=== PATIENT | male | born 1955 | race Caucasian/White ===

== ENCOUNTER 2017-12-11 19:02 | Inpatient (IN) ==
[2017-12-11] MEDS ORDERED: SODIUM CHLORIDE 0.9% 500 ML IV STA (19:28)
[2017-12-11] MEDS ORDERED: ONDANSETRON 4 MG/2 ML VIAL IV STA (19:28)
[2017-12-11] MEDS ORDERED: METOCLOPRAMIDE 10 MG/2 ML VIAL IV STA (19:36)
[2017-12-11 19:55] LABS: Basophils % 0.1 % (0.0-0.8); Eosinophils % 0.1 % (0.00-10.9); Hematocrit 39.3 VOL% (42.0-52.0); Hemoglobin 13.1 GM/DL (14.0-18.0); Immature Granulocytes % 0.3 %; Immature Granulocytes Absolute 0.04 #; Lymphocytes # 0.8 10*3/uL (1.4-4.0); Lymphocytes % 5.5 % (21.2-54.2); Mean Corpuscular HGB Conc 33.3 GM/DL (32-36); Mean Corpuscular Hemoglobin 31 PG (27-34); Mean Corpuscular Volume 92.3 FL (87-102); Mean Platelet Volume 11.1 FL (9.6-12.0); Monocytes # 0.7 10*3/uL (0.11-0.8); Monocytes % 4.8 % (1.7-12.7); Neutrophils # 13.4 10*3/uL (1.4-7.4); Neutrophils % 89.2 % (38.7-73.9); Platelet Count 284 T/CUMM (130-400); Red Blood Count 4.26 MC/CUMM (3.8-5.5); Red Cell Distribution Width 14.2 % (9.3-17.3)
[2017-12-11] MEDS ORDERED: ONDANSETRON 4 MG/2 ML VIAL ONE (19:59)
[2017-12-11] MEDS ORDERED: METOCLOPRAMIDE 10 MG/2 ML VIAL ONE (19:59)
[2017-12-11 20:02] LABS: Apearance,Urine CLEAR (Clear); Bilirubin,Urine Negative (Negative); Blood, Urine Negative (Negative); Glucose,Urine (UA) Negative (Negative); Hyaline Casts,Urine 3 /LPF (0-3); Ketones,Urine Negative (Negative); Mucus,Urine Few /LPF (Occasional); Nitrite,Urine Positive (Negative); Protein,Urine 30 MG/DL; RBC,Urine 1 /HPF (0-4); Squamous Epithelial Cell,Urine Occasional /HPF (0-10); Urine Color Amber (Yellow); Urine Specific Gravity 1.029 (1.001-1.035); Urine Urobilinogen < 2.0 EU/DL (0.2-1.0); WBC,Urine 8 /HPF (0-6)
[2017-12-11] MEDS ORDERED: metroNIDAZOLE INJ 500 MG in PREMIX 1 EACH IV STA (20:18)
[2017-12-11] MEDS ORDERED: cefTRIAXone 2,000 MG in SODIUM CHLORIDE 0.9% 100 ML IV ONE (20:18)
[2017-12-11 20:19] LABS: Alanine Aminotransferase 10 U/L (16-61); Albumin 3.2 G/DL (3.4-5.0); Alkaline Phosphatase 74 U/L (45-117); Amylase 56 U/L (25-115); Aspartate Amino Transferase 12 U/L (0-37); Blood Urea Nitrogen 17 MG/DL (7-18); Calcium 8.9 MG/DL (8.5-10.1); Glucose 100 MG/DL (74-106); Lactic Acid 1.9 MMOL/L (0.4-2.0); Osmolality,Calculated 278.5 MOS/KG (273-304); Potassium 2.9 MMOL/L (3.5-5.1); Sodium 139 MMOL/L (136-145); Total Protein 7.4 G/DL (6.4-8.3); Troponin I < 0.015 NG/ML (0.00-0.045)
[2017-12-11] MEDS ORDERED: cefTRIAXone 1,000 MG VIAL ONE (20:20)
[2017-12-11] MEDS ORDERED: SODIUM CHLORIDE 0.9% 100 ML IV ONE ×2 (20:21→22:19)
[2017-12-11 20:34] LABS: INR 1.1; PT Patient Result 11.7 SECS; Partial Thromboplastin Time 29.5 SECS (0-40)
[2017-12-11] MEDS ORDERED: SODIUM CHLORIDE 0.9% 1,000 ML IV STA (21:00)
[2017-12-11] MEDS ORDERED: POTASSIUM CHLORIDE RIDER 100 ML IV ONE (21:42)
[2017-12-11] MEDS ORDERED: POTASSIUM CHLORIDE RIDER 10 MEQ in PREMIX 1 EACH IV ONE (22:01)
[2017-12-11] MEDS ORDERED: ALBUTEROL/IPRATROPIUM 3 ML NEB RESP TX STA (22:14)
[2017-12-11] MEDS ORDERED: PROPOFOL 1,000 MG/100 ML BOTTLE IV SCH (23:45)
[2017-12-12 00:07] LABS: Apearance,Urine CLEAR (Clear); Bilirubin,Urine Negative (Negative); Blood, Urine Negative (Negative); Glucose,Urine (UA) Negative (Negative); Hyaline Casts,Urine 18 /LPF (0-3); Ketones,Urine Negative (Negative); Mucus,Urine Occasional /LPF (Occasional); Nitrite,Urine Positive (Negative); Protein,Urine Negative; RBC,Urine 1 /HPF (0-4); Renal Epithelial Cells,Urine Occasional /HPF (<1); Urine Color Yellow (Yellow); Urine Specific Gravity 1.023 (1.001-1.035); Urine Urobilinogen < 2.0 EU/DL (0.2-1.0); WBC,Urine 1 /HPF (0-6)
[2017-12-12] MEDS ORDERED: ONDANSETRON 4 MG/2 ML VIAL IV PRN (00:46)
[2017-12-12] MEDS ORDERED: PROMETHAZINE 25 MG/1 ML VIAL IM PRN (00:46)
[2017-12-12] MEDS ORDERED: PROPOFOL 200 MG/20 ML VIAL IV ONE (00:54)
[2017-12-12] MEDS ORDERED: DEXAMETHASONE 10 MG/1 ML VIAL ONE (00:55)
[2017-12-12] MEDS ORDERED: MIDAZOLAM 2 MG/2 ML VIAL ONE (00:55)
[2017-12-12] MEDS ORDERED: DESFLURANE 1 UNIT/15 MINUTE INH ONE (00:55)
[2017-12-12] MEDS ORDERED: KETOROLAC 30 MG/1 ML VIAL ONE (00:56)
[2017-12-12] MEDS ORDERED: ONDANSETRON 4 MG/2 ML VIAL ONE (00:56)
[2017-12-12] MEDS ORDERED: PHENYLEPHRINE 0.5% NASAL SPRAY 15 ML BOTTLE BOTH NARES ONE (00:56)
[2017-12-12] MEDS ORDERED: ACETAMINOPHEN 1,000 MG/100 ML VIAL IV ONE (00:56)
[2017-12-12] MEDS ORDERED: PHENYLEPHRINE 1 MG/10 ML SYRINGE IV ONE (00:56)
[2017-12-12] MEDS ORDERED: ROCURONIUM 100 MG/10 ML VIAL IV ONE (00:56)
[2017-12-12] MEDS ORDERED: LACTATED RINGERS 2,000 ML IV ONE (00:56)
[2017-12-12] MEDS ORDERED: SUCCINYLCHOLINE 200 MG/10 ML VIAL ONE (00:57)
[2017-12-12] MEDS ORDERED: LACTATED RINGERS 1,000 ML IV SCH (01:00)
[2017-12-12] MEDS: PROPOFOL 1,000 MG/100 ML BOTTLE IV SCH (01:10)
[2017-12-12] MEDS: KETOROLAC 15 MG/1 ML VIAL IV SCH ×4 (01:18→18:13)
[2017-12-12 01:29] LABS: ABG Base Excess -1.7 MMOL/L (-2.5-2.5); ABG Oxygen Saturation 96.9 % (95-100); ABG PCO2 48.1 MM HG (35-48); ABG PH 7.322 (7.35-7.45); ABG TCO2 22.1 MMOL/L (23-27); Allen Test Positive; Pt O2 Delivery Device Ventilator
[2017-12-12] MEDS: HYDROmorphone 2 MG/1 ML VIAL IV PRN ×4 (01:36→23:32)
[2017-12-12 02:06] LABS: Calcium 7.7 MG/DL (8.5-10.1); Osmolality,Calculated 282.3 MOS/KG (273-304)
[2017-12-12 02:11] LABS: Basophils % 0.1 % (0.0-0.8); Eosinophils % 0.1 % (0.00-10.9); Hematocrit 36.8 VOL% (42.0-52.0); Hemoglobin 12.5 GM/DL (14.0-18.0); Immature Granulocytes % 0.3 %; Immature Granulocytes Absolute 0.05 #; Lymphocytes # 0.9 10*3/uL (1.4-4.0); Lymphocytes % 5.6 % (21.2-54.2); Mean Corpuscular Hemoglobin 31 PG (27-34); Mean Corpuscular Volume 92.2 FL (87-102); Mean Platelet Volume 11.4 FL (9.6-12.0); Monocytes # 0.6 10*3/uL (0.11-0.8); Monocytes % 3.7 % (1.7-12.7); Neutrophils # 13.7 10*3/uL (1.4-7.4); Neutrophils % 90.2 % (38.7-73.9); Platelet Count 263 T/CUMM (130-400); Red Blood Count 3.99 MC/CUMM (3.8-5.5); Red Cell Distribution Width 14.1 % (9.3-17.3); White Blood Count 15.2 T/CUMM (4-12)
[2017-12-12 03:32] LABS: Allen Test Positive; Pt O2 Delivery Device Ventilator
[2017-12-12 03:33] LABS: ABG Base Excess 0.7 MMOL/L (-2.5-2.5); ABG HCO3 25.5 MMOL/L (20-26); ABG Oxygen Saturation 97.4 % (95-100); ABG PCO2 41.9 MM HG (35-48); ABG PH 7.403 (7.35-7.45); ABG PO2 115.4 MM HG (80-95); ABG TCO2 26.8 MMOL/L (23-27)
[2017-12-12 05:25] LABS: Basophils % 0.2 % (0.0-0.8); Hematocrit 33.7 VOL% (42.0-52.0); Hemoglobin 11.7 GM/DL (14.0-18.0); Immature Granulocytes % 0.4 %; Immature Granulocytes Absolute 0.05 #; Lymphocytes # 0.5 10*3/uL (1.4-4.0); Lymphocytes % 4.1 % (21.2-54.2); Mean Corpuscular HGB Conc 34.7 GM/DL (32-36); Mean Corpuscular Hemoglobin 32 PG (27-34); Mean Corpuscular Volume 91.6 FL (87-102); Mean Platelet Volume 11.9 FL (9.6-12.0); Monocytes # 0.3 10*3/uL (0.11-0.8); Monocytes % 2.2 % (1.7-12.7); Neutrophils # 11.7 10*3/uL (1.4-7.4); Neutrophils % 93.1 % (38.7-73.9); Platelet Count 272 T/CUMM (130-400); Red Blood Count 3.68 MC/CUMM (3.8-5.5); White Blood Count 12.6 T/CUMM (4-12)
[2017-12-12 06:02] LABS: Band Neutrophils 19 % (0-10); Lymphocytes 4 % (20-55); Platelet Estimate Normal; Segmented Neutrophils 73 % (50-85); Total Cells Counted 100
[2017-12-12 06:03] LABS: Acanthocytes Few; Hypochromasia 3+
[2017-12-12] MEDS: POTASSIUM CHLORIDE RIDER 10 MEQ in PREMIX 1 EACH IV PRN ×2 (06:59→08:06)
[2017-12-12] MEDS: PANTOPRAZOLE 40 MG VIAL IV SCH (08:02)
[2017-12-12] MEDS: METOPROLOL SUCCINATE XL 25 MG TABLET PO SCH (08:03)
[2017-12-12] MEDS: ASPIRIN EC 325 MG TABLET PO SCH (08:03)
[2017-12-12] MEDS: amLODIPine 5 MG TABLET PO SCH (08:03)
[2017-12-12] MEDS: DEXT 5% NACL 0.45% KCL 40 MEQ 40 MEQ/1,000 ML BAG IV SCH ×2 (08:25→16:39)
[2017-12-12 09:19] LABS: Allen Test Positive
[2017-12-12 09:25] LABS: ABG Base Excess 0.9 MMOL/L (-2.5-2.5); ABG HCO3 25.2 MMOL/L (20-26); ABG Oxygen Saturation 98.2 % (95-100); ABG PCO2 40.5 MM HG (35-48); ABG PH 7.408 (7.35-7.45); ABG TCO2 22.6 MMOL/L (23-27)
[2017-12-12 10:09] LABS: Calcium 8.4 MG/DL (8.5-10.1); Osmolality,Calculated 280.4 MOS/KG (273-304); Potassium 4.1 MMOL/L (3.5-5.1)
[2017-12-12] MEDS: ALBUTEROL/IPRATROPIUM 3 ML NEB RESP TX SCH ×4 (11:01→23:26)
[2017-12-12] MEDS: ENOXAPARIN 40 MG/0.4 ML SYRINGE SUBCUT SCH (20:35)
[2017-12-12] MEDS: ATORVASTATIN 40 MG TABLET PO SCH (20:35)
[2017-12-13] MEDS: DEXT 5% NACL 0.45% KCL 40 MEQ 40 MEQ/1,000 ML BAG IV SCH ×3 (01:00→17:22)
[2017-12-13] MEDS: KETOROLAC 15 MG/1 ML VIAL IV SCH ×4 (02:56→18:22)
[2017-12-13] MEDS: ALBUTEROL/IPRATROPIUM 3 ML NEB RESP TX SCH ×6 (03:29→23:36)
[2017-12-13 03:50] LABS: ABG Base Excess 1.2 MMOL/L (-2.5-2.5); ABG HCO3 25.5 MMOL/L (20-26); ABG Oxygen Saturation 97.1 % (95-100); ABG PCO2 40.6 MM HG (35-48); ABG PH 7.412 (7.35-7.45); ABG TCO2 22.9 MMOL/L (23-27)
[2017-12-13 04:40] LABS: Basophils % 0.1 % (0.0-0.8); Eosinophils # 0.1 10*3/uL (0.0-0.87); Eosinophils % 0.4 % (0.00-10.9); Hematocrit 36.1 VOL% (42.0-52.0); Immature Granulocytes % 0.3 %; Immature Granulocytes Absolute 0.05 #; Lymphocytes # 1.4 10*3/uL (1.4-4.0); Lymphocytes % 8.9 % (21.2-54.2); Mean Corpuscular HGB Conc 33.2 GM/DL (32-36); Mean Corpuscular Hemoglobin 31 PG (27-34); Mean Corpuscular Volume 91.9 FL (87-102); Mean Platelet Volume 12.2 FL (9.6-12.0); Monocytes # 0.7 10*3/uL (0.11-0.8); Monocytes % 4.4 % (1.7-12.7); Neutrophils # 13.9 10*3/uL (1.4-7.4); Neutrophils % 85.9 % (38.7-73.9); Platelet Count 246 T/CUMM (130-400); Red Blood Count 3.93 MC/CUMM (3.8-5.5); Red Cell Distribution Width 14.2 % (9.3-17.3); White Blood Count 16.2 T/CUMM (4-12)
[2017-12-13] MEDS: HYDROmorphone 2 MG/1 ML VIAL IV PRN (05:43)
[2017-12-13] MEDS: PANTOPRAZOLE 40 MG VIAL IV SCH (09:04)
[2017-12-13] MEDS: ASPIRIN EC 325 MG TABLET PO SCH (09:05)
[2017-12-13] MEDS: METOPROLOL SUCCINATE XL 25 MG TABLET PO SCH (09:05)
[2017-12-13] MEDS: amLODIPine 5 MG TABLET PO SCH (09:05)
[2017-12-13] MEDS: LEVOFLOXACIN INJ 500 MG in PREMIX 1 EACH IV SCH (16:28)
[2017-12-13] MEDS: PROPOFOL 1,000 MG/100 ML BOTTLE IV SCH (17:23)
[2017-12-13] MEDS: ENOXAPARIN 40 MG/0.4 ML SYRINGE SUBCUT SCH (20:00)
[2017-12-13] MEDS: ATORVASTATIN 40 MG TABLET PO SCH (20:00)
[2017-12-14] MEDS: KETOROLAC 15 MG/1 ML VIAL IV SCH ×4 (00:55→19:35)
[2017-12-14] MEDS: DEXT 5% NACL 0.45% KCL 40 MEQ 40 MEQ/1,000 ML BAG IV SCH ×3 (02:30→19:25)
[2017-12-14] MEDS: ALBUTEROL/IPRATROPIUM 3 ML NEB RESP TX SCH ×6 (04:17→23:23)
[2017-12-14 04:27] LABS: ABG Base Excess 2.8 MMOL/L (-2.5-2.5); ABG HCO3 26.8 MMOL/L (20-26); ABG Oxygen Saturation 93.6 % (95-100); ABG PCO2 36.5 MM HG (35-48); ABG PH 7.466 (7.35-7.45); ABG PO2 67.8 MM HG (80-95); ABG TCO2 23.4 MMOL/L (23-27); Allen Test Positive; Pt O2 Delivery Device Room Air
[2017-12-14 05:06] LABS: Basophils % 0.3 % (0.0-0.8); Eosinophils # 0.4 10*3/uL (0.0-0.87); Eosinophils % 4.7 % (0.00-10.9); Hematocrit 34.9 VOL% (42.0-52.0); Hemoglobin 11.4 GM/DL (14.0-18.0); Immature Granulocytes % 0.4 %; Immature Granulocytes Absolute 0.04 #; Lymphocytes # 1.1 10*3/uL (1.4-4.0); Lymphocytes % 11.9 % (21.2-54.2); Mean Corpuscular HGB Conc 32.7 GM/DL (32-36); Mean Corpuscular Hemoglobin 30 PG (27-34); Mean Corpuscular Volume 92.8 FL (87-102); Mean Platelet Volume 12.2 FL (9.6-12.0); Monocytes # 0.6 10*3/uL (0.11-0.8); Monocytes % 6.3 % (1.7-12.7); Neutrophils # 7.2 10*3/uL (1.4-7.4); Neutrophils % 76.4 % (38.7-73.9); Platelet Count 230 T/CUMM (130-400); Red Blood Count 3.76 MC/CUMM (3.8-5.5); Red Cell Distribution Width 14.6 % (9.3-17.3); White Blood Count 9.4 T/CUMM (4-12)
[2017-12-14] MEDS: HYDROmorphone 2 MG/1 ML VIAL IV PRN ×4 (05:20→23:00)
[2017-12-14] MEDS: ASPIRIN EC 325 MG TABLET PO SCH (09:47)
[2017-12-14] MEDS: METOPROLOL SUCCINATE XL 25 MG TABLET PO SCH (09:47)
[2017-12-14] MEDS: amLODIPine 5 MG TABLET PO SCH (09:48)
[2017-12-14] MEDS: PANTOPRAZOLE 40 MG VIAL IV SCH (09:48)
[2017-12-14] MEDS ORDERED: SILVER NITRATE STICK 1 EACH TOP ONE ×2 (12:29→12:38)
[2017-12-14] MEDS: LEVOFLOXACIN INJ 500 MG in PREMIX 1 EACH IV SCH (16:09)
[2017-12-14] MEDS: ENOXAPARIN 40 MG/0.4 ML SYRINGE SUBCUT SCH (21:18)
[2017-12-14] MEDS: ATORVASTATIN 40 MG TABLET PO SCH (21:18)
[2017-12-15] MEDS: DEXT 5% NACL 0.45% KCL 40 MEQ 40 MEQ/1,000 ML BAG IV SCH ×3 (03:50→20:19)
[2017-12-15] MEDS: ALBUTEROL/IPRATROPIUM 3 ML NEB RESP TX SCH ×5 (04:22→18:48)
[2017-12-15 04:35] LABS: ABG Base Excess 4.5 MMOL/L (-2.5-2.5); ABG HCO3 28.3 MMOL/L (20-26); ABG Oxygen Saturation 91.5 % (95-100); ABG PCO2 38.8 MM HG (35-48); ABG PH 7.472 (7.35-7.45); ABG TCO2 25.2 MMOL/L (23-27); Allen Test Positive; Pt O2 Delivery Device Room Air
[2017-12-15] MEDS: HYDROmorphone 2 MG/1 ML VIAL IV PRN (06:34)
[2017-12-15 07:12] LABS: Basophils % 0.3 % (0.0-0.8); Eosinophils # 0.5 10*3/uL (0.0-0.87); Eosinophils % 5.8 % (0.00-10.9); Hematocrit 37.5 VOL% (42.0-52.0); Hemoglobin 12.1 GM/DL (14.0-18.0); Immature Granulocytes % 0.5 %; Immature Granulocytes Absolute 0.04 #; Lymphocytes # 1.2 10*3/uL (1.4-4.0); Lymphocytes % 13.4 % (21.2-54.2); Mean Corpuscular HGB Conc 32.3 GM/DL (32-36); Mean Corpuscular Hemoglobin 30 PG (27-34); Mean Corpuscular Volume 93.8 FL (87-102); Monocytes # 0.6 10*3/uL (0.11-0.8); Monocytes % 7.4 % (1.7-12.7); Neutrophils # 6.3 10*3/uL (1.4-7.4); Neutrophils % 72.6 % (38.7-73.9); Platelet Count 255 T/CUMM (130-400); Red Cell Distribution Width 14.2 % (9.3-17.3); White Blood Count 8.6 T/CUMM (4-12)
[2017-12-15] MEDS: PANTOPRAZOLE 40 MG VIAL IV SCH (08:04)
[2017-12-15] MEDS: METOPROLOL SUCCINATE XL 25 MG TABLET PO SCH (08:04)
[2017-12-15] MEDS: ASPIRIN EC 325 MG TABLET PO SCH (08:04)
[2017-12-15] MEDS: amLODIPine 5 MG TABLET PO SCH (08:04)
[2017-12-15] MEDS: MEROPENEM 500 MG in SODIUM CHLORIDE 0.9% 100 ML IV SCH ×2 (10:53→17:34)
[2017-12-15] MEDS: ATORVASTATIN 40 MG TABLET PO SCH (20:20)
[2017-12-15] MEDS: ENOXAPARIN 40 MG/0.4 ML SYRINGE SUBCUT SCH (20:22)
[2017-12-16] MEDS: ALBUTEROL/IPRATROPIUM 3 ML NEB RESP TX SCH ×7 (00:19→23:42)
[2017-12-16] MEDS: MEROPENEM 500 MG in SODIUM CHLORIDE 0.9% 100 ML IV SCH ×3 (01:40→18:11)
[2017-12-16 02:11] LABS: Apearance,Urine CLEAR (Clear); Bilirubin,Urine Negative (Negative); Blood, Urine Small mg/dL (Negative); Glucose,Urine (UA) Negative (Negative); Ketones,Urine Negative (Negative); Mucus,Urine Occasional /LPF (Occasional); Nitrite,Urine Negative (Negative); Protein,Urine Negative; RBC,Urine <1 /HPF (0-4); Squamous Epithelial Cell,Urine Occasional /HPF (0-10); Urine Color Yellow (Yellow); Urine Specific Gravity 1.008 (1.001-1.035); Urine Urobilinogen < 2.0 EU/DL (0.2-1.0); WBC,Urine 2 /HPF (0-6)
[2017-12-16 07:20] LABS: Basophils % 0.5 % (0.0-0.8); Eosinophils # 0.6 10*3/uL (0.0-0.87); Eosinophils % 6.6 % (0.00-10.9); Hematocrit 37.4 VOL% (42.0-52.0); Hemoglobin 12.6 GM/DL (14.0-18.0); Immature Granulocytes % 0.5 %; Immature Granulocytes Absolute 0.04 #; Lymphocytes # 1.3 10*3/uL (1.4-4.0); Lymphocytes % 15.2 % (21.2-54.2); Mean Corpuscular HGB Conc 33.7 GM/DL (32-36); Mean Corpuscular Hemoglobin 31 PG (27-34); Mean Corpuscular Volume 92.3 FL (87-102); Mean Platelet Volume 12.2 FL (9.6-12.0); Monocytes # 0.8 10*3/uL (0.11-0.8); Monocytes % 9.4 % (1.7-12.7); Neutrophils # 5.9 10*3/uL (1.4-7.4); Neutrophils % 67.8 % (38.7-73.9); Platelet Count 253 T/CUMM (130-400); Red Blood Count 4.05 MC/CUMM (3.8-5.5); Red Cell Distribution Width 13.8 % (9.3-17.3); White Blood Count 8.7 T/CUMM (4-12)
[2017-12-16 07:50] LABS: Calcium 8.5 MG/DL (8.5-10.1); Osmolality,Calculated 273.5 MOS/KG (273-304)
[2017-12-16] MEDS: amLODIPine 5 MG TABLET PO SCH (08:46)
[2017-12-16] MEDS: METOPROLOL SUCCINATE XL 25 MG TABLET PO SCH (08:46)
[2017-12-16] MEDS: PANTOPRAZOLE 40 MG TABLET PO SCH (08:46)
[2017-12-16] MEDS: ASPIRIN EC 325 MG TABLET PO SCH (08:46)
[2017-12-16] MEDS: DEXT 5% NACL 0.45% KCL 40 MEQ 40 MEQ/1,000 ML BAG IV SCH ×2 (10:02→23:15)
[2017-12-16] MEDS: HYDROmorphone 2 MG/1 ML VIAL IV PRN ×2 (10:10→22:05)
[2017-12-16] MEDS: MAGNESIUM CHLORIDE 64 MG TABLET PO SCH ×2 (11:50→22:04)
[2017-12-16] MEDS: ATORVASTATIN 40 MG TABLET PO SCH (22:04)
[2017-12-16] MEDS: ENOXAPARIN 40 MG/0.4 ML SYRINGE SUBCUT SCH (22:05)
[2017-12-17] MEDS: MEROPENEM 500 MG in SODIUM CHLORIDE 0.9% 100 ML IV SCH ×2 (03:47→10:41)
[2017-12-17] MEDS: ALBUTEROL/IPRATROPIUM 3 ML NEB RESP TX SCH ×4 (04:05→14:54)
[2017-12-17] MEDS: ASPIRIN EC 325 MG TABLET PO SCH (09:30)
[2017-12-17] MEDS: amLODIPine 5 MG TABLET PO SCH (09:31)
[2017-12-17] MEDS: MAGNESIUM CHLORIDE 64 MG TABLET PO SCH (09:31)
[2017-12-17] MEDS: METOPROLOL SUCCINATE XL 25 MG TABLET PO SCH (09:31)
[2017-12-17] MEDS: PANTOPRAZOLE 40 MG TABLET PO SCH (09:31)
[2017-12-17] MEDS: HYDROmorphone 2 MG/1 ML VIAL IV PRN ×2 (10:43→14:33)
[2017-12-17 16:29] VITALS: BP 143/75
== END 2017-12-17 16:25 | DRG 329 ==
LOC: N.ED 19:02 → N.ICU 22:24 → N.SDS 22:25 → N.SDSINP 22:29 → N.ICU 22:30 → N.3E 12-13 20:54
PROVIDERS: ADMIT Surgery; ATTEND Surgery

== ENCOUNTER 2017-12-22 08:28 | Inpatient (IN) ==
[2017-12-22 09:50] LABS: Basophils # 0.1 10*3/uL (0.0-0.2); Basophils % 0.3 % (0.0-0.8); Hematocrit 40.9 VOL% (42.0-52.0); Hemoglobin 13.9 GM/DL (14.0-18.0); Immature Granulocytes % 0.9 %; Immature Granulocytes Absolute 0.18 #; Lymphocytes # 1.3 10*3/uL (1.4-4.0); Lymphocytes % 6.2 % (21.2-54.2); Mean Corpuscular Hemoglobin 31 PG (27-34); Mean Corpuscular Volume 90.9 FL (87-102); Mean Platelet Volume 11.9 FL (9.6-12.0); Monocytes # 2.1 10*3/uL (0.11-0.8); Neutrophils # 17.4 10*3/uL (1.4-7.4); Neutrophils % 82.6 % (38.7-73.9); Platelet Count 554 T/CUMM (130-400); Red Cell Distribution Width 13.3 % (9.3-17.3)
[2017-12-22 10:09] LABS: Albumin 2.8 G/DL (3.4-5.0); Bilirubin,Total 0.5 MG/DL (0.2-1.0); Calcium 9.4 MG/DL (8.5-10.1); Osmolality,Calculated 265.7 MOS/KG (273-304)
[2017-12-22] MEDS ORDERED: ONDANSETRON 4 MG/2 ML VIAL IV STA (10:11)
[2017-12-22 10:14] LABS: Eosinophils 1 % (0-10); Lymphocytes 7 % (20-55); Microcytosis Slight; Platelet Estimate Increased; Segmented Neutrophils 80 % (50-85); Total Cells Counted 100
[2017-12-22] MEDS ORDERED: SODIUM CHLORIDE 0.9% 1,000 ML IV STA (11:18)
[2017-12-22] MEDS ORDERED: PROMETHAZINE 25 MG/1 ML VIAL IM PRN (13:12)
[2017-12-22] MEDS ORDERED: ACETAMINOPHEN 325 MG TABLET PO PRN (13:12)
[2017-12-22] MEDS: MORPHINE 4 MG/1 ML VIAL IV PRN ×2 (14:39→22:15)
[2017-12-22] MEDS: ONDANSETRON 4 MG/2 ML VIAL IV PRN (14:40)
[2017-12-22] MEDS: PIPERACILLIN/TAZOBACTAM 3,375 MG in SODIUM CHLORIDE 0.9% 100 ML IV SCH ×2 (14:41→22:05)
[2017-12-22] MEDS: LACTATED RINGERS 1,000 ML IV SCH (14:41)
[2017-12-22 18:49] LABS: Apearance,Urine Slightly Hazy (Clear); Bilirubin,Urine Negative (Negative); Blood, Urine Negative (Negative); Glucose,Urine (UA) 50 mg/dL (Negative); Hyaline Casts,Urine 105 /LPF (0-3); Ketones,Urine 5 mg/dL (Negative); Mucus,Urine Occasional /LPF (Occasional); Nitrite,Urine Negative (Negative); Protein,Urine Negative; RBC,Urine 2 /HPF (0-4); Squamous Epithelial Cell,Urine Occasional /HPF (0-10); Urine Color Amber (Yellow); WBC,Urine 1 /HPF (0-6)
[2017-12-23] MEDS: PIPERACILLIN/TAZOBACTAM 3,375 MG in SODIUM CHLORIDE 0.9% 100 ML IV SCH ×3 (05:44→21:22)
[2017-12-23] MEDS: ENOXAPARIN 40 MG/0.4 ML SYRINGE SUBCUT SCH (05:44)
[2017-12-23] MEDS: LACTATED RINGERS 1,000 ML IV SCH ×4 (06:57→20:05)
[2017-12-23 07:03] LABS: Basophils # 0.1 10*3/uL (0.0-0.2); Basophils % 0.4 % (0.0-0.8); Eosinophils # 0.1 10*3/uL (0.0-0.87); Eosinophils % 0.3 % (0.00-10.9); Hematocrit 35.1 VOL% (42.0-52.0); Immature Granulocytes % 0.5 %; Immature Granulocytes Absolute 0.09 #; Lymphocytes # 1.1 10*3/uL (1.4-4.0); Lymphocytes % 5.7 % (21.2-54.2); Mean Corpuscular HGB Conc 34.2 GM/DL (32-36); Mean Corpuscular Hemoglobin 31 PG (27-34); Mean Corpuscular Volume 90.7 FL (87-102); Mean Platelet Volume 10.7 FL (9.6-12.0); Monocytes # 1.2 10*3/uL (0.11-0.8); Monocytes % 6.2 % (1.7-12.7); Neutrophils % 86.9 % (38.7-73.9); Platelet Count 449 T/CUMM (130-400); Red Blood Count 3.87 MC/CUMM (3.8-5.5); Red Cell Distribution Width 13.3 % (9.3-17.3); White Blood Count 19.6 T/CUMM (4-12)
[2017-12-23 07:42] LABS: Calcium 8.1 MG/DL (8.5-10.1); Osmolality,Calculated 275.1 MOS/KG (273-304); Potassium 3.8 MMOL/L (3.5-5.1)
[2017-12-23] MEDS: ONDANSETRON 4 MG/2 ML VIAL IV PRN (08:02)
[2017-12-23] MEDS: MORPHINE 4 MG/1 ML VIAL IV PRN ×3 (08:02→23:53)
[2017-12-23] MEDS: PANTOPRAZOLE 40 MG TABLET PO SCH (08:02)
[2017-12-23] MEDS ORDERED: MAGNESIUM SULF RIDER 4 GM in PREMIX 1 EACH IV PRN (11:42)
[2017-12-23] MEDS: MAGNESIUM SULF RIDER 2 GM in PREMIX 1 EACH IV PRN (12:03)
[2017-12-24 05:43] LABS: Basophils # 0.1 10*3/uL (0.0-0.2); Basophils % 0.8 % (0.0-0.8); Eosinophils # 0.2 10*3/uL (0.0-0.87); Eosinophils % 1.6 % (0.00-10.9); Hematocrit 32.8 VOL% (42.0-52.0); Hemoglobin 10.9 GM/DL (14.0-18.0); Immature Granulocytes % 0.8 %; Lymphocytes # 1.4 10*3/uL (1.4-4.0); Lymphocytes % 10.6 % (21.2-54.2); Mean Corpuscular HGB Conc 33.2 GM/DL (32-36); Mean Corpuscular Hemoglobin 31 PG (27-34); Mean Corpuscular Volume 92.1 FL (87-102); Mean Platelet Volume 11.1 FL (9.6-12.0); Monocytes % 7.1 % (1.7-12.7); Neutrophils # 10.6 10*3/uL (1.4-7.4); Neutrophils % 79.1 % (38.7-73.9); Platelet Count 372 T/CUMM (130-400); Red Blood Count 3.56 MC/CUMM (3.8-5.5); Red Cell Distribution Width 13.1 % (9.3-17.3); White Blood Count 13.3 T/CUMM (4-12)
[2017-12-24] MEDS: PIPERACILLIN/TAZOBACTAM 3,375 MG in SODIUM CHLORIDE 0.9% 100 ML IV SCH ×2 (05:44→14:00)
[2017-12-24] MEDS: ENOXAPARIN 40 MG/0.4 ML SYRINGE SUBCUT SCH (05:45)
[2017-12-24 06:06] LABS: Calcium 8.6 MG/DL (8.5-10.1); Potassium 3.7 MMOL/L (3.5-5.1)
[2017-12-24] MEDS: LACTATED RINGERS 1,000 ML IV SCH ×2 (06:13→13:12)
[2017-12-24] MEDS ORDERED: chlorproMAZINE INJ 25 MG in SODIUM CHLORIDE 0.9% 100 ML IV PRN (07:17)
[2017-12-24] MEDS: PANTOPRAZOLE 40 MG TABLET PO SCH (09:04)
[2017-12-24 11:52] VITALS: BP 108/64
[2017-12-24] MEDS: MAGNESIUM SULF RIDER 2 GM in PREMIX 1 EACH IV PRN (12:33)
== END 2017-12-24 14:46 | DRG 389 ==
LOC: EDUNIT# → EDBD → N.EDINP 08:28 → N.ED 08:28 → N.3E 12:30
PROVIDERS: ADMIT Surgery; ATTEND Surgery

== ENCOUNTER 2018-07-07 05:53 | Inpatient (IN) ==
[2018-06-29 16:03] LABS: Basophils # 0.1 10*3/uL (0.0-0.2); Basophils % 0.8 % (0.0-0.8); Eosinophils # 0.2 10*3/uL (0.0-0.87); Eosinophils % 1.8 % (0.00-10.9); Hematocrit 42.5 VOL% (42.0-52.0); Hemoglobin 13.7 GM/DL (14.0-18.0); Immature Granulocytes % 0.6 %; Immature Granulocytes Absolute 0.08 #; Lymphocytes # 1.9 10*3/uL (1.4-4.0); Lymphocytes % 14.1 % (21.2-54.2); Mean Corpuscular HGB Conc 32.2 GM/DL (32-36); Mean Corpuscular Volume 94.9 FL (87-102); Mean Platelet Volume 11.1 FL (9.6-12.0); Neutrophils % 72.7 % (38.7-73.9); Platelet Count 233 T/CUMM (130-400); Red Blood Count 4.48 MC/CUMM (3.8-5.5); White Blood Count 13.2 T/CUMM (4-12)
[2018-06-29 16:32] LABS: Calcium 9.1 MG/DL (8.5-10.1); Osmolality,Calculated 274.4 MOS/KG (273-304)
[2018-07-07] MEDS ORDERED: ERTAPENEM 1,000 MG in SODIUM CHLORIDE 0.9% 100 ML IV ONE (06:00)
[2018-07-07] MEDS ORDERED: ALVIMOPAN 12 MG CAPSULE PO ONE (06:00)
[2018-07-07] MEDS ORDERED: ALVIMOPAN 12 MG CAPSULE ONE (06:12)
[2018-07-07] MEDS ORDERED: ERTAPENEM 1,000 MG VIAL ONE (06:12)
[2018-07-07] MEDS ORDERED: DIAZEPAM 5 MG TABLET ONE (06:24)
[2018-07-07] MEDS: LACTATED RINGERS 1,000 ML IV SCH ×4 (07:10→21:09)
[2018-07-07] MEDS ORDERED: INDOCYANINE GREEN 25 MG VIAL IV ONE (07:42)
[2018-07-07] MEDS ORDERED: TISSUE ADHESIVE 1 EACH APPLICATOR TOP ONE (07:42)
[2018-07-07] MEDS ORDERED: PROPOFOL 200 MG/20 ML VIAL IV ONE (12:40)
[2018-07-07] MEDS ORDERED: ACETAMINOPHEN 1,000 MG/100 ML VIAL IV ONE (12:41)
[2018-07-07] MEDS ORDERED: PHENYLEPHRINE 1 MG/10 ML SYRINGE IV ONE (12:41)
[2018-07-07] MEDS ORDERED: fentaNYL 100 MCG/2 ML VIAL ONE (12:41)
[2018-07-07] MEDS ORDERED: MIDAZOLAM 2 MG/2 ML VIAL ONE (12:41)
[2018-07-07] MEDS ORDERED: GLYCOPYRROLATE 0.4 MG/2 ML VIAL ONE (12:41)
[2018-07-07] MEDS ORDERED: ONDANSETRON 4 MG/2 ML VIAL ONE ×2 (12:41→12:44)
[2018-07-07] MEDS ORDERED: ePHEDrine 50 MG/ML AMP ONE (12:41)
[2018-07-07] MEDS ORDERED: DESFLURANE 1 UNIT/15 MINUTE INH ONE (12:41)
[2018-07-07] MEDS ORDERED: LACTATED RINGERS 1,000 ML IV ONE (12:42)
[2018-07-07] MEDS ORDERED: ROCURONIUM 100 MG/10 ML VIAL IV ONE (12:42)
[2018-07-07] MEDS ORDERED: NEOSTIGMINE 10 MG/10 ML VIAL ONE (12:42)
[2018-07-07] MEDS ORDERED: HYDROmorphone 2 MG/1 ML VIAL ONE (12:44)
[2018-07-07] MEDS: HYDROmorphone 2 MG/1 ML VIAL IV PRN ×6 (12:48→23:22)
[2018-07-07] MEDS ORDERED: ONDANSETRON 4 MG/2 ML VIAL IV PRN (12:52)
[2018-07-07 13:20] LABS: Basophils % 0.4 % (0.0-0.8); Eosinophils % 0.3 % (0.00-10.9); Hematocrit 44.1 VOL% (42.0-52.0); Hemoglobin 14.1 GM/DL (14.0-18.0); Immature Granulocytes % 0.6 %; Immature Granulocytes Absolute 0.07 #; Lymphocytes # 0.8 10*3/uL (1.4-4.0); Lymphocytes % 6.9 % (21.2-54.2); Mean Corpuscular Volume 95.2 FL (87-102); Mean Platelet Volume 11.1 FL (9.6-12.0); Monocytes % 5.4 % (1.7-12.7); Neutrophils % 86.4 % (38.7-73.9); Platelet Count 262 T/CUMM (130-400); Red Blood Count 4.63 MC/CUMM (3.8-5.5); White Blood Count 11.2 T/CUMM (4-12)
[2018-07-07] MEDS: KETOROLAC 15 MG/1 ML VIAL IV SCH ×2 (13:55→18:37)
[2018-07-07 13:58] LABS: Calcium 8.5 MG/DL (8.5-10.1); Osmolality,Calculated 286.8 MOS/KG (273-304)
[2018-07-07] MEDS: ALVIMOPAN 12 MG CAPSULE PO SCH (21:08)
[2018-07-07] MEDS: ONDANSETRON 4 MG/2 ML VIAL IV PRN (21:10)
[2018-07-07] MEDS: PROMETHAZINE 25 MG/1 ML VIAL IM PRN (23:25)
[2018-07-08] MEDS: KETOROLAC 15 MG/1 ML VIAL IV SCH ×2 (01:50→06:02)
[2018-07-08] MEDS: PROMETHAZINE 25 MG/1 ML VIAL IM PRN (03:27)
[2018-07-08] MEDS: HYDROmorphone 2 MG/1 ML VIAL IV PRN ×6 (03:27→22:34)
[2018-07-08] MEDS: LACTATED RINGERS 1,000 ML IV SCH ×4 (03:28→20:19)
[2018-07-08 04:49] LABS: Basophils % 0.2 % (0.0-0.8); Hematocrit 43.8 VOL% (42.0-52.0); Hemoglobin 14.3 GM/DL (14.0-18.0); Immature Granulocytes % 0.3 %; Immature Granulocytes Absolute 0.06 #; Lymphocytes # 0.7 10*3/uL (1.4-4.0); Lymphocytes % 3.8 % (21.2-54.2); Mean Corpuscular HGB Conc 32.6 GM/DL (32-36); Mean Corpuscular Volume 94.4 FL (87-102); Mean Platelet Volume 11.9 FL (9.6-12.0); Monocytes % 5.6 % (1.7-12.7); Neutrophils % 90.1 % (38.7-73.9); Platelet Count 263 T/CUMM (130-400); Red Blood Count 4.64 MC/CUMM (3.8-5.5); White Blood Count 17.6 T/CUMM (4-12)
[2018-07-08 05:04] LABS: Calcium 8.5 MG/DL (8.5-10.1); Osmolality,Calculated 290.7 MOS/KG (273-304)
[2018-07-08 05:11] LABS: Band Neutrophils 2 % (0-10); Lymphocytes 6 % (20-55); Segmented Neutrophils 87 % (50-85)
[2018-07-08 05:12] LABS: Platelet Estimate Normal; Total Cells Counted 100
[2018-07-08] MEDS ORDERED: ENOXAPARIN 40 MG/0.4 ML SYRINGE SUBCUT SCH (06:33)
[2018-07-08] MEDS ORDERED: POTASSIUM CHLORIDE 20 MEQ TABLET PO PRN (06:39)
[2018-07-08] MEDS ORDERED: PROPOFOL 200 MG/20 ML VIAL IV ONE (09:00)
[2018-07-08] MEDS ORDERED: PANTOPRAZOLE 40 MG TABLET PO SCH (09:00)
[2018-07-08] MEDS ORDERED: LIDOCAINE 2% 5 ML VIAL ONE (09:00)
[2018-07-08] MEDS ORDERED: LABETALOL 100 MG/20 ML VIAL IV ONE (09:00)
[2018-07-08] MEDS: ATORVASTATIN 40 MG TABLET PO SCH (09:07)
[2018-07-08] MEDS: ALVIMOPAN 12 MG CAPSULE PO SCH ×2 (09:07→20:04)
[2018-07-08] MEDS: METOPROLOL SUCCINATE XL 50 MG TABLET PO SCH (09:08)
[2018-07-08 09:41] LABS: Hematocrit 42.7 VOL% (42.0-52.0); Hemoglobin 13.8 GM/DL (14.0-18.0)
[2018-07-08 12:02] LABS: Alanine Aminotransferase 19 U/L (16-61); Albumin 2.8 G/DL (3.4-5.0); Alkaline Phosphatase 67 U/L (45-117); Aspartate Amino Transferase 32 U/L (0-37); Bilirubin,Direct < 0.100 MG/DL (0.0-0.20); Bilirubin,Indirect 0.3 MG/DL (0.0-1.0); Bilirubin,Total < 0.39 MG/DL (0.2-1.0); Total Protein 6.7 G/DL (6.4-8.3)
[2018-07-08 12:27] LABS: PT Patient Result 10.9 SECS
[2018-07-08] MEDS: POTASSIUM CHLORIDE RIDER 10 MEQ in PREMIX 1 EACH IV PRN ×4 (12:57→20:18)
[2018-07-08] MEDS ORDERED: ONDANSETRON 4 MG/2 ML VIAL ONE (13:16)
[2018-07-08] MEDS ORDERED: ETOMIDATE 20 MG/10 ML VIAL IV ONE (14:11)
[2018-07-08] MEDS: PANTOPRAZOLE 40 MG VIAL IV SCH (20:17)
[2018-07-09] MEDS: HYDROmorphone 2 MG/1 ML VIAL IV PRN ×8 (00:34→22:19)
[2018-07-09] MEDS: LACTATED RINGERS 1,000 ML IV SCH ×5 (00:36→20:15)
[2018-07-09] MEDS: POTASSIUM CHLORIDE RIDER 10 MEQ in PREMIX 1 EACH IV PRN ×2 (01:44→05:33)
[2018-07-09 04:44] LABS: Basophils # 0.1 10*3/uL (0.0-0.2); Basophils % 0.3 % (0.0-0.8); Eosinophils # 0.1 10*3/uL (0.0-0.87); Eosinophils % 0.3 % (0.00-10.9); Hematocrit 45.6 VOL% (42.0-52.0); Hemoglobin 14.7 GM/DL (14.0-18.0); Immature Granulocytes % 0.6 %; Immature Granulocytes Absolute 0.11 #; Lymphocytes # 1.2 10*3/uL (1.4-4.0); Lymphocytes % 6.8 % (21.2-54.2); Mean Corpuscular HGB Conc 32.2 GM/DL (32-36); Mean Corpuscular Volume 95.4 FL (87-102); Mean Platelet Volume 11.6 FL (9.6-12.0); Monocytes % 8.3 % (1.7-12.7); Neutrophils % 83.7 % (38.7-73.9); Platelet Count 262 T/CUMM (130-400); Red Blood Count 4.78 MC/CUMM (3.8-5.5); Red Cell Distribution Width 17.2 % (9.3-17.3); White Blood Count 17.7 T/CUMM (4-12)
[2018-07-09 04:59] LABS: Calcium 9.3 MG/DL (8.5-10.1); Osmolality,Calculated 284.1 MOS/KG (273-304)
[2018-07-09] MEDS: PANTOPRAZOLE 40 MG VIAL IV SCH ×2 (08:23→20:11)
[2018-07-09] MEDS: ATORVASTATIN 40 MG TABLET PO SCH (09:34)
[2018-07-09] MEDS: ALVIMOPAN 12 MG CAPSULE PO SCH ×2 (09:34→20:07)
[2018-07-09] MEDS: METOPROLOL SUCCINATE XL 50 MG TABLET PO SCH (09:34)
[2018-07-09] MEDS: ONDANSETRON 4 MG/2 ML VIAL IV PRN ×2 (11:50→20:07)
[2018-07-09 16:42] LABS: Hematocrit 49.1 VOL% (42.0-52.0); Hemoglobin 15.6 GM/DL (14.0-18.0)
[2018-07-09 17:16] LABS: Blood Urea Nitrogen 17 MG/DL (7-18)
[2018-07-10] MEDS: HYDROmorphone 2 MG/1 ML VIAL IV PRN ×7 (00:46→23:12)
[2018-07-10] MEDS: ONDANSETRON 4 MG/2 ML VIAL IV PRN ×4 (00:47→23:12)
[2018-07-10] MEDS: PROMETHAZINE 25 MG/1 ML VIAL IM PRN ×3 (04:01→20:42)
[2018-07-10] MEDS: LACTATED RINGERS 1,000 ML IV SCH (04:08)
[2018-07-10 04:09] LABS: Basophils # 0.1 10*3/uL (0.0-0.2); Basophils % 0.3 % (0.0-0.8); Eosinophils % 0.2 % (0.00-10.9); Hematocrit 46.5 VOL% (42.0-52.0); Hemoglobin 14.6 GM/DL (14.0-18.0); Immature Granulocytes % 0.9 %; Immature Granulocytes Absolute 0.19 #; Lymphocytes # 1.1 10*3/uL (1.4-4.0); Lymphocytes % 5.3 % (21.2-54.2); Mean Corpuscular HGB Conc 31.4 GM/DL (32-36); Mean Corpuscular Volume 97.1 FL (87-102); Mean Platelet Volume 11.5 FL (9.6-12.0); Monocytes % 9.3 % (1.7-12.7); Platelet Count 268 T/CUMM (130-400); Red Blood Count 4.79 MC/CUMM (3.8-5.5); Red Cell Distribution Width 16.9 % (9.3-17.3); White Blood Count 20.7 T/CUMM (4-12)
[2018-07-10 04:52] LABS: Lymphocytes 4 % (20-55); Segmented Neutrophils 91 % (50-85); Total Cells Counted 100
[2018-07-10 04:55] LABS: Anisocytosis 1+; Platelet Estimate Adequate
[2018-07-10 06:02] LABS: Calcium 8.9 MG/DL (8.5-10.1)
[2018-07-10] MEDS: PANTOPRAZOLE 40 MG VIAL IV SCH ×2 (08:42→20:40)
[2018-07-10] MEDS: ATORVASTATIN 40 MG TABLET PO SCH (08:45)
[2018-07-10] MEDS: METOPROLOL SUCCINATE XL 50 MG TABLET PO SCH (08:45)
[2018-07-10] MEDS: ALVIMOPAN 12 MG CAPSULE PO SCH (08:46)
[2018-07-10] MEDS ORDERED: MAGNESIUM SULF RIDER 2 GM in PREMIX 1 EACH IV PRN (09:06)
[2018-07-10] MEDS ORDERED: MAGNESIUM SULF RIDER 4 GM in PREMIX 1 EACH IV PRN (09:06)
[2018-07-10] MEDS: chlorproMAZINE INJ 25 MG in SODIUM CHLORIDE 0.9% 100 ML IV SCH ×3 (10:45→23:19)
[2018-07-11 00:05] LABS: Apearance,Urine CLEAR (Clear); Bilirubin,Urine Negative (Negative); Blood, Urine Negative (Negative); Glucose,Urine (UA) Negative (Negative); Ketones,Urine 20 mg/dL (Negative); Mucus,Urine Occasional /LPF (Occasional); Nitrite,Urine Negative (Negative); Protein,Urine Negative; Urine Color Yellow (Yellow); Urine Specific Gravity 1.023 (1.001-1.035); Urine Urobilinogen < 2.0 EU/DL (0.2-1.0); WBC,Urine 1 /HPF (0-6)
[2018-07-11] MEDS: HYDROmorphone 2 MG/1 ML VIAL IV PRN ×8 (03:20→23:44)
[2018-07-11] MEDS: ONDANSETRON 4 MG/2 ML VIAL IV PRN ×4 (03:21→21:09)
[2018-07-11] MEDS: chlorproMAZINE INJ 25 MG in SODIUM CHLORIDE 0.9% 100 ML IV SCH ×4 (05:40→23:48)
[2018-07-11 06:49] LABS: Basophils # 0.1 10*3/uL (0.0-0.2); Basophils % 0.3 % (0.0-0.8); Eosinophils # 0.1 10*3/uL (0.0-0.87); Eosinophils % 0.9 % (0.00-10.9); Hematocrit 45.5 VOL% (42.0-52.0); Hemoglobin 14.5 GM/DL (14.0-18.0); Immature Granulocytes % 0.6 %; Immature Granulocytes Absolute 0.09 #; Lymphocytes # 1.1 10*3/uL (1.4-4.0); Lymphocytes % 7.1 % (21.2-54.2); Mean Corpuscular HGB Conc 31.9 GM/DL (32-36); Mean Corpuscular Volume 96.4 FL (87-102); Mean Platelet Volume 12.2 FL (9.6-12.0); Monocytes % 9.8 % (1.7-12.7); Neutrophils % 81.3 % (38.7-73.9); Platelet Count 257 T/CUMM (130-400); Red Blood Count 4.72 MC/CUMM (3.8-5.5); Red Cell Distribution Width 16.4 % (9.3-17.3); White Blood Count 14.9 T/CUMM (4-12)
[2018-07-11 07:09] LABS: Calcium 8.8 MG/DL (8.5-10.1); Osmolality,Calculated 288.7 MOS/KG (273-304)
[2018-07-11] MEDS: ERTAPENEM 1,000 MG in SODIUM CHLORIDE 0.9% 100 ML IV SCH (07:40)
[2018-07-11] MEDS: ATORVASTATIN 40 MG TABLET PO SCH (09:11)
[2018-07-11] MEDS: METOPROLOL SUCCINATE XL 50 MG TABLET PO SCH (09:11)
[2018-07-11] MEDS: PANTOPRAZOLE 40 MG VIAL IV SCH ×2 (09:11→21:07)
[2018-07-11] MEDS: PROMETHAZINE 25 MG/1 ML VIAL IM PRN ×3 (09:22→23:44)
[2018-07-11] MEDS: LACTATED RINGERS 1,000 ML IV SCH ×2 (13:16→22:00)
[2018-07-12] MEDS: ONDANSETRON 4 MG/2 ML VIAL IV PRN ×2 (03:15→20:31)
[2018-07-12] MEDS: HYDROmorphone 2 MG/1 ML VIAL IV PRN ×6 (03:15→20:29)
[2018-07-12] MEDS: chlorproMAZINE INJ 25 MG in SODIUM CHLORIDE 0.9% 100 ML IV SCH ×4 (05:59→23:15)
[2018-07-12] MEDS: ERTAPENEM 1,000 MG in SODIUM CHLORIDE 0.9% 100 ML IV SCH (08:55)
[2018-07-12] MEDS: LACTATED RINGERS 1,000 ML IV SCH ×2 (08:57→21:15)
[2018-07-12] MEDS: METOPROLOL SUCCINATE XL 50 MG TABLET PO SCH (08:59)
[2018-07-12] MEDS: ATORVASTATIN 40 MG TABLET PO SCH (09:00)
[2018-07-12] MEDS: PANTOPRAZOLE 40 MG VIAL IV SCH ×2 (09:01→20:13)
[2018-07-12] MEDS: TAMSULOSIN 0.4 MG CAPSULE PO SCH (13:41)
[2018-07-13] MEDS: LACTATED RINGERS 1,000 ML IV SCH ×2 (00:22→09:27)
[2018-07-13] MEDS: HYDROmorphone 2 MG/1 ML VIAL IV PRN ×2 (01:03→08:29)
[2018-07-13 04:51] LABS: Basophils # 0.1 10*3/uL (0.0-0.2); Basophils % 0.3 % (0.0-0.8); Eosinophils # 0.4 10*3/uL (0.0-0.87); Eosinophils % 2.3 % (0.00-10.9); Hematocrit 41.4 VOL% (42.0-52.0); Hemoglobin 13.3 GM/DL (14.0-18.0); Immature Granulocytes % 0.9 %; Immature Granulocytes Absolute 0.14 #; Lymphocytes # 1.3 10*3/uL (1.4-4.0); Lymphocytes % 8.5 % (21.2-54.2); Mean Corpuscular HGB Conc 32.1 GM/DL (32-36); Mean Corpuscular Volume 96.5 FL (87-102); Mean Platelet Volume 12.3 FL (9.6-12.0); Monocytes % 10.5 % (1.7-12.7); Neutrophils % 77.5 % (38.7-73.9); Platelet Count 265 T/CUMM (130-400); Red Blood Count 4.29 MC/CUMM (3.8-5.5); White Blood Count 15.5 T/CUMM (4-12)
[2018-07-13 05:23] LABS: Bilirubin,Total 0.6 MG/DL (0.2-1.0); Calcium 8.9 MG/DL (8.5-10.1); Osmolality,Calculated 292.4 MOS/KG (273-304); Total Protein 6.3 G/DL (6.4-8.3)
[2018-07-13] MEDS: chlorproMAZINE INJ 25 MG in SODIUM CHLORIDE 0.9% 100 ML IV SCH ×4 (05:39→23:00)
[2018-07-13] MEDS: PANTOPRAZOLE 40 MG VIAL IV SCH ×2 (08:34→21:00)
[2018-07-13] MEDS: ERTAPENEM 1,000 MG in SODIUM CHLORIDE 0.9% 100 ML IV SCH (08:40)
[2018-07-13] MEDS: POTASSIUM CHLORIDE RIDER 10 MEQ in PREMIX 1 EACH IV PRN ×3 (09:22→14:19)
[2018-07-13] MEDS: METOPROLOL SUCCINATE XL 50 MG TABLET PO SCH (11:04)
[2018-07-13] MEDS: ATORVASTATIN 40 MG TABLET PO SCH (11:04)
[2018-07-13] MEDS: TAMSULOSIN 0.4 MG CAPSULE PO SCH (11:05)
[2018-07-14 04:32] LABS: Basophils % 0.3 % (0.0-0.8); Eosinophils # 0.4 10*3/uL (0.0-0.87); Eosinophils % 3.2 % (0.00-10.9); Hemoglobin 12.7 GM/DL (14.0-18.0); Immature Granulocytes % 1.3 %; Immature Granulocytes Absolute 0.17 #; Lymphocytes # 1.2 10*3/uL (1.4-4.0); Lymphocytes % 9.2 % (21.2-54.2); Mean Corpuscular HGB Conc 32.6 GM/DL (32-36); Mean Corpuscular Volume 94.7 FL (87-102); Mean Platelet Volume 12.4 FL (9.6-12.0); Monocytes % 11.1 % (1.7-12.7); Neutrophils % 74.9 % (38.7-73.9); Platelet Count 299 T/CUMM (130-400); Red Blood Count 4.12 MC/CUMM (3.8-5.5); Red Cell Distribution Width 15.6 % (9.3-17.3); White Blood Count 13.2 T/CUMM (4-12)
[2018-07-14 05:05] LABS: Calcium 8.8 MG/DL (8.5-10.1); Osmolality,Calculated 282.1 MOS/KG (273-304)
[2018-07-14] MEDS: chlorproMAZINE INJ 25 MG in SODIUM CHLORIDE 0.9% 100 ML IV SCH (05:23)
[2018-07-14] MEDS: TAMSULOSIN 0.4 MG CAPSULE PO SCH (08:21)
[2018-07-14] MEDS: METOPROLOL SUCCINATE XL 50 MG TABLET PO SCH (08:21)
[2018-07-14] MEDS: ATORVASTATIN 40 MG TABLET PO SCH (08:21)
[2018-07-14] MEDS: POTASSIUM CHLORIDE 20 MEQ TABLET PO PRN ×3 (08:58→12:49)
[2018-07-14] MEDS ORDERED: AMOXICILLIN/CLAV 875 MG TABLET PO SCH (09:00)
[2018-07-14] MEDS ORDERED: LISINOPRIL 5 MG TABLET PO SCH (09:00)
[2018-07-14] MEDS ORDERED: PANTOPRAZOLE 40 MG TABLET PO SCH (09:00)
[2018-07-14 11:47] VITALS: BP 166/92
== END 2018-07-14 14:02 | disposition hospice, home (50) | DRG 329 ==
LOC: N.OR 05:53 → N.SDSINP 05:53 → N.3E 11:29
PROVIDERS: ADMIT Surgery; ATTEND Surgery

== ENCOUNTER 2019-07-08 12:37 | Inpatient (IN) ==
[2019-07-08] MEDS ORDERED: METOCLOPRAMIDE 10 MG/2 ML VIAL IV STA (13:07)
[2019-07-08] MEDS ORDERED: DICYCLOMINE 20 MG/2 ML AMP IM ONE (13:07)
[2019-07-08] MEDS ORDERED: SODIUM CHLORIDE 0.9% 1,000 ML IV STA (13:07)
[2019-07-08] MEDS ORDERED: ONDANSETRON 4 MG/2 ML VIAL IV STA (13:07)
[2019-07-08] MEDS ORDERED: PANTOPRAZOLE 40 MG VIAL IV STA (13:07)
[2019-07-08 14:07] LABS: Basophils # 0.1 10*3/uL (0.0-0.2); Basophils % 0.4 % (0.0-0.8); Eosinophils % 0.2 % (0.00-10.9); Hematocrit 44.3 VOL% (42.0-52.0); Immature Granulocytes % 0.5 %; Immature Granulocytes Absolute 0.08 #; Lymphocytes % 6.2 % (21.2-54.2); Mean Corpuscular HGB Conc 33.9 GM/DL (32-36); Mean Corpuscular Volume 90.2 FL (87-102); Mean Platelet Volume 10.4 FL (9.6-12.0); Monocytes % 8.2 % (1.7-12.7); Neutrophils % 84.5 % (38.7-73.9); Platelet Count 394 T/CUMM (130-400); Red Blood Count 4.91 MC/CUMM (3.8-5.5); Red Cell Distribution Width 13.4 % (9.3-17.3); White Blood Count 16.3 T/CUMM (4-12)
[2019-07-08] MEDS ORDERED: SODIUM CHLORIDE 0.9% 2,000 ML IV STA (14:14)
[2019-07-08] MEDS ORDERED: cefTRIAXone 2,000 MG in SODIUM CHLORIDE 0.9% 100 ML IV STA (14:14)
[2019-07-08] MEDS ORDERED: metroNIDAZOLE INJ 500 MG in PREMIX 1 EACH IV STA (14:14)
[2019-07-08 14:27] LABS: Alanine Aminotransferase 15 U/L (16-61); Albumin 3.4 G/DL (3.4-5.0); Alkaline Phosphatase 94 U/L (45-117); Amylase 137 U/L (25-115); Aspartate Amino Transferase 16 U/L (0-37); Bilirubin,Total < 0.39 MG/DL (0.2-1.0); Blood Urea Nitrogen 13 MG/DL (7-18); Calcium 9.9 MG/DL (8.5-10.1); Estimated Glom Filtration Rate 105 ML/MIN; Glucose 115 MG/DL (74-106); Osmolality,Calculated 253.4 MOS/KG (273-304); Total Protein 8.3 G/DL (6.4-8.3); Troponin I < 0.015 NG/ML (0.00-0.045)
[2019-07-08] MEDS ORDERED: ACETAMINOPHEN 325 MG TABLET PO PRN (15:31)
[2019-07-08] MEDS ORDERED: ALBUTEROL/IPRATROPIUM 3 ML NEB RESP TX PRN (15:43)
[2019-07-08] MEDS ORDERED: LORazepam 2 MG/1 ML VIAL IV PRN ×2 (15:47)
[2019-07-08] MEDS ORDERED: SODIUM CHLORIDE 0.9% 1,000 ML IV SCH (16:00)
[2019-07-08] MEDS ORDERED: NICOTINE 21 MG/24 HR PATCH TRANSDERM PRN (16:00)
[2019-07-08] MEDS: HYDROmorphone 2 MG/1 ML VIAL IV PRN ×2 (16:12→21:04)
[2019-07-08] MEDS: THIAMINE INJ 100 MG, FOLIC ACID INJ 1 MG, MULTIVITAMIN INJ 10 ML in SODIUM CHLORIDE 0.9... IV SCH (17:17)
[2019-07-08 19:05] LABS: Apearance,Urine CLEAR (Clear); Bacteria,Urine Occasional /HPF (Few); Bilirubin,Urine Negative (Negative); Blood, Urine Negative (Negative); Glucose,Urine (UA) Negative (Negative); Hyaline Casts,Urine 23 /LPF (0-3); Ketones,Urine Negative (Negative); Mucus,Urine Occasional /LPF (Occasional); Nitrite,Urine Negative (Negative); Protein,Urine Negative; RBC,Urine 2 /HPF (0-4); Urine Color Yellow (Yellow); Urine Specific Gravity 1.011 (1.001-1.035); Urine Urobilinogen < 2.0 EU/DL (0.2-1.0); WBC,Urine 7 /HPF (0-6)
[2019-07-08] MEDS: ONDANSETRON 4 MG/2 ML VIAL IV PRN (21:03)
[2019-07-09] MEDS: HYDROmorphone 2 MG/1 ML VIAL IV PRN ×5 (00:31→19:51)
[2019-07-09] MEDS: ONDANSETRON 4 MG/2 ML VIAL IV PRN (03:31)
[2019-07-09 06:50] LABS: Basophils % 0.2 % (0.0-0.8); Eosinophils % 0.1 % (0.00-10.9); Hematocrit 40.8 VOL% (42.0-52.0); Hemoglobin 13.6 GM/DL (14.0-18.0); Immature Granulocytes % 0.4 %; Immature Granulocytes Absolute 0.07 #; Lymphocytes # 0.8 10*3/uL (1.4-4.0); Lymphocytes % 4.4 % (21.2-54.2); Mean Corpuscular HGB Conc 33.3 GM/DL (32-36); Mean Corpuscular Volume 91.7 FL (87-102); Mean Platelet Volume 10.7 FL (9.6-12.0); Monocytes % 6.9 % (1.7-12.7); Platelet Count 365 T/CUMM (130-400); Red Blood Count 4.45 MC/CUMM (3.8-5.5); Red Cell Distribution Width 13.7 % (9.3-17.3); White Blood Count 17.1 T/CUMM (4-12)
[2019-07-09 08:10] LABS: Anisocytosis Slight; Hypochromasia Slight; Lymphocytes 7 % (20-55); Macrocytosis Slight; Ovalocytes Few; Platelet Estimate Normal; Polychromasia Slight; Segmented Neutrophils 86 % (50-85); Total Cells Counted 100
[2019-07-09 08:11] LABS: Calcium 9.1 MG/DL (8.5-10.1); Osmolality,Calculated 266.2 MOS/KG (273-304)
[2019-07-09] MEDS: PANTOPRAZOLE 40 MG VIAL IV SCH (09:43)
[2019-07-09] MEDS ORDERED: MAGNESIUM SULF RIDER 4 GM in PREMIX 1 EACH IV PRN (10:00)
[2019-07-09] MEDS: ENOXAPARIN 40 MG/0.4 ML SYRINGE SUBCUT SCH (10:22)
[2019-07-09] MEDS: MAGNESIUM SULF RIDER 2 GM in PREMIX 1 EACH IV PRN (10:23)
[2019-07-09] MEDS: LACTATED RINGERS 1,000 ML IV SCH ×2 (13:01→22:19)
[2019-07-09] MEDS: THIAMINE INJ 100 MG, FOLIC ACID INJ 1 MG, MULTIVITAMIN INJ 10 ML in SODIUM CHLORIDE 0.9... IV SCH (17:38)
[2019-07-10] MEDS: HYDROmorphone 2 MG/1 ML VIAL IV PRN ×3 (01:10→18:28)
[2019-07-10] MEDS: LACTATED RINGERS 1,000 ML IV SCH (06:10)
[2019-07-10 06:43] LABS: Basophils % 0.3 % (0.0-0.8); Eosinophils # 0.1 10*3/uL (0.0-0.87); Eosinophils % 1.2 % (0.00-10.9); Hematocrit 36.1 VOL% (42.0-52.0); Hemoglobin 11.8 GM/DL (14.0-18.0); Immature Granulocytes % 0.3 %; Immature Granulocytes Absolute 0.03 #; Lymphocytes # 1.5 10*3/uL (1.4-4.0); Lymphocytes % 12.7 % (21.2-54.2); Mean Corpuscular HGB Conc 32.7 GM/DL (32-36); Mean Corpuscular Volume 91.4 FL (87-102); Mean Platelet Volume 10.5 FL (9.6-12.0); Monocytes % 8.1 % (1.7-12.7); Neutrophils % 77.4 % (38.7-73.9); Platelet Count 309 T/CUMM (130-400); Red Blood Count 3.95 MC/CUMM (3.8-5.5); Red Cell Distribution Width 13.9 % (9.3-17.3); White Blood Count 11.7 T/CUMM (4-12)
[2019-07-10 07:08] LABS: Alanine Aminotransferase 10 U/L (16-61); Albumin 2.5 G/DL (3.4-5.0); Alkaline Phosphatase 62 U/L (45-117); Aspartate Amino Transferase 13 U/L (0-37); Bilirubin,Total < 0.39 MG/DL (0.2-1.0); Blood Urea Nitrogen 8 MG/DL (7-18); Calcium 8.8 MG/DL (8.5-10.1); Estimated Glom Filtration Rate 124 ML/MIN; Glucose 93 MG/DL (74-106); Total Protein 5.9 G/DL (6.4-8.3)
[2019-07-10] MEDS: PANTOPRAZOLE 40 MG VIAL IV SCH (09:05)
[2019-07-10] MEDS: ENOXAPARIN 40 MG/0.4 ML SYRINGE SUBCUT SCH (09:06)
[2019-07-10] MEDS: DEXT 5% NACL 0.45% KCL 40 MEQ 40 MEQ/1,000 ML BAG IV SCH ×2 (12:24→21:11)
[2019-07-10] MEDS: KETOROLAC 15 MG/1 ML VIAL IV PRN (14:15)
[2019-07-10] MEDS: THIAMINE INJ 100 MG, FOLIC ACID INJ 1 MG, MULTIVITAMIN INJ 10 ML in SODIUM CHLORIDE 0.9... IV SCH (18:17)
[2019-07-10] MEDS: ONDANSETRON 4 MG/2 ML VIAL IV PRN (18:32)
[2019-07-11] MEDS: HYDROmorphone 2 MG/1 ML VIAL IV PRN ×5 (00:42→22:37)
[2019-07-11] MEDS: ONDANSETRON 4 MG/2 ML VIAL IV PRN ×2 (05:01→22:38)
[2019-07-11] MEDS: DEXT 5% NACL 0.45% KCL 40 MEQ 40 MEQ/1,000 ML BAG IV SCH ×3 (05:19→19:45)
[2019-07-11 06:59] LABS: Calcium 8.6 MG/DL (8.5-10.1)
[2019-07-11] MEDS: KETOROLAC 15 MG/1 ML VIAL IV PRN (12:05)
[2019-07-11] MEDS: PANTOPRAZOLE 40 MG VIAL IV SCH (12:05)
[2019-07-11] MEDS: ENOXAPARIN 40 MG/0.4 ML SYRINGE SUBCUT SCH (12:07)
[2019-07-11] MEDS: THIAMINE INJ 100 MG, FOLIC ACID INJ 1 MG, MULTIVITAMIN INJ 10 ML in SODIUM CHLORIDE 0.9... IV SCH (22:38)
[2019-07-12] MEDS: HYDROmorphone 2 MG/1 ML VIAL IV PRN ×5 (02:47→20:33)
[2019-07-12 06:28] LABS: Basophils % 0.4 % (0.0-0.8); Eosinophils # 0.3 10*3/uL (0.0-0.87); Eosinophils % 2.7 % (0.00-10.9); Hematocrit 36.3 VOL% (42.0-52.0); Hemoglobin 11.6 GM/DL (14.0-18.0); Immature Granulocytes % 0.4 %; Immature Granulocytes Absolute 0.04 #; Lymphocytes # 1.6 10*3/uL (1.4-4.0); Lymphocytes % 15.8 % (21.2-54.2); Mean Corpuscular Volume 94.5 FL (87-102); Mean Platelet Volume 10.5 FL (9.6-12.0); Monocytes % 9.7 % (1.7-12.7); Platelet Count 283 T/CUMM (130-400); Red Blood Count 3.84 MC/CUMM (3.8-5.5); Red Cell Distribution Width 13.6 % (9.3-17.3); White Blood Count 9.9 T/CUMM (4-12)
[2019-07-12 06:53] LABS: Calcium 8.8 MG/DL (8.5-10.1); Osmolality,Calculated 268.8 MOS/KG (273-304)
[2019-07-12] MEDS: DEXT 5% NACL 0.45% KCL 40 MEQ 40 MEQ/1,000 ML BAG IV SCH ×2 (09:14→13:21)
[2019-07-12] MEDS: ENOXAPARIN 40 MG/0.4 ML SYRINGE SUBCUT SCH (09:15)
[2019-07-12] MEDS: PANTOPRAZOLE 40 MG VIAL IV SCH (09:15)
[2019-07-12] MEDS: MAGNESIUM SULF RIDER 2 GM in PREMIX 1 EACH IV PRN (09:15)
[2019-07-12] MEDS: THIAMINE INJ 100 MG, FOLIC ACID INJ 1 MG, MULTIVITAMIN INJ 10 ML in SODIUM CHLORIDE 0.9... IV SCH (20:34)
[2019-07-13] MEDS: HYDROmorphone 2 MG/1 ML VIAL IV PRN ×2 (00:22→02:49)
[2019-07-13 06:03] LABS: Basophils # 0.1 10*3/uL (0.0-0.2); Basophils % 0.7 % (0.0-0.8); Eosinophils # 0.6 10*3/uL (0.0-0.87); Eosinophils % 6.6 % (0.00-10.9); Hematocrit 36.3 VOL% (42.0-52.0); Hemoglobin 11.9 GM/DL (14.0-18.0); Immature Granulocytes % 0.5 %; Immature Granulocytes Absolute 0.04 #; Lymphocytes # 1.7 10*3/uL (1.4-4.0); Lymphocytes % 19.4 % (21.2-54.2); Mean Corpuscular HGB Conc 32.8 GM/DL (32-36); Mean Corpuscular Volume 91.7 FL (87-102); Mean Platelet Volume 10.2 FL (9.6-12.0); Neutrophils % 61.8 % (38.7-73.9); Platelet Count 286 T/CUMM (130-400); Red Blood Count 3.96 MC/CUMM (3.8-5.5); Red Cell Distribution Width 13.3 % (9.3-17.3); White Blood Count 8.5 T/CUMM (4-12)
[2019-07-13 06:36] LABS: Calcium 8.5 MG/DL (8.5-10.1)
[2019-07-13] MEDS: DEXT 5% NACL 0.45% KCL 40 MEQ 40 MEQ/1,000 ML BAG IV SCH ×3 (07:36→15:45)
[2019-07-13] MEDS: PANTOPRAZOLE 40 MG VIAL IV SCH (09:38)
[2019-07-13] MEDS: ENOXAPARIN 40 MG/0.4 ML SYRINGE SUBCUT SCH (09:38)
[2019-07-13] MEDS: MAGNESIUM SULF RIDER 2 GM in PREMIX 1 EACH IV PRN (10:58)
[2019-07-13] MEDS: THIAMINE INJ 100 MG, FOLIC ACID INJ 1 MG, MULTIVITAMIN INJ 10 ML in SODIUM CHLORIDE 0.9... IV SCH (22:11)
[2019-07-14] MEDS: DEXT 5% NACL 0.45% KCL 40 MEQ 40 MEQ/1,000 ML BAG IV SCH ×2 (04:16→04:17)
[2019-07-14] MEDS: PANTOPRAZOLE 40 MG VIAL IV SCH (08:50)
[2019-07-14] MEDS: ENOXAPARIN 40 MG/0.4 ML SYRINGE SUBCUT SCH (08:50)
[2019-07-14 08:59] VITALS: BP 148/69
== END 2019-07-14 09:46 | disposition home or self-care (01) | DRG 389 ==
LOC: N.ED 12:37 → N.EDINP 15:31 → N.3E 16:12
PROVIDERS: ADMIT Surgery; ATTEND Surgery

== ENCOUNTER 2019-07-16 18:29 | Inpatient (IN) ==
[2019-07-16] MEDS ORDERED: SODIUM CHLORIDE 0.9% 1,000 ML IV STA (19:11)
[2019-07-16] MEDS ORDERED: PANTOPRAZOLE 40 MG VIAL IV STA (19:11)
[2019-07-16] MEDS ORDERED: ONDANSETRON 4 MG/2 ML VIAL IV STA (19:11)
[2019-07-16 19:40] LABS: Basophils # 0.1 10*3/uL (0.0-0.2); Basophils % 0.5 % (0.0-0.8); Eosinophils # 0.2 10*3/uL (0.0-0.87); Eosinophils % 1.3 % (0.00-10.9); Hematocrit 44.4 VOL% (42.0-52.0); Hemoglobin 14.7 GM/DL (14.0-18.0); Immature Granulocytes % 0.7 %; Immature Granulocytes Absolute 0.11 #; Lymphocytes # 1.5 10*3/uL (1.4-4.0); Lymphocytes % 10.4 % (21.2-54.2); Mean Corpuscular HGB Conc 33.1 GM/DL (32-36); Mean Platelet Volume 10.4 FL (9.6-12.0); Monocytes % 7.7 % (1.7-12.7); Neutrophils % 79.4 % (38.7-73.9); Platelet Count 413 T/CUMM (130-400); Red Blood Count 4.88 MC/CUMM (3.8-5.5); Red Cell Distribution Width 13.6 % (9.3-17.3); White Blood Count 14.8 T/CUMM (4-12)
[2019-07-16 19:59] LABS: Alanine Aminotransferase 12 U/L (16-61); Albumin 3.4 G/DL (3.4-5.0); Alkaline Phosphatase 77 U/L (45-117); Amylase 121 U/L (25-115); Aspartate Amino Transferase 17 U/L (0-37); Bilirubin,Total < 0.39 MG/DL (0.2-1.0); Blood Urea Nitrogen 12 MG/DL (7-18); Calcium 9.5 MG/DL (8.5-10.1); Estimated Glom Filtration Rate 41 ML/MIN; Ferritin 141.8 ng/ml (26-388); Glucose 105 MG/DL (74-106); Osmolality,Calculated 269.1 MOS/KG (273-304); Total Protein 8.6 G/DL (6.4-8.3); Troponin I < 0.015 NG/ML (0.00-0.045)
[2019-07-16] MEDS ORDERED: fentaNYL 100 MCG/2 ML VIAL IV STA (20:08)
[2019-07-16 20:34] LABS: Apearance,Urine CLOUDY (Clear); Bilirubin,Urine Negative (Negative); Blood, Urine Negative (Negative); Glucose,Urine (UA) Negative (Negative); Hyaline Casts,Urine 27 /LPF (0-3); Ketones,Urine Negative (Negative); Mucus,Urine Occasional /LPF (Occasional); Nitrite,Urine Negative (Negative); Protein,Urine 30 MG/DL; RBC,Urine 4 /HPF (0-4); Squamous Epithelial Cell,Urine Occasional /HPF (0-10); Urine Color Amber (Yellow); Urine Specific Gravity 1.023 (1.001-1.035); Urine Urobilinogen < 2.0 EU/DL (0.2-1.0); WBC,Urine 48 /HPF (0-6)
[2019-07-16] MEDS ORDERED: cefTRIAXone 2,000 MG in SODIUM CHLORIDE 0.9% 100 ML IV ONE (21:24)
[2019-07-16] MEDS ORDERED: metroNIDAZOLE INJ 500 MG in PREMIX 1 EACH IV STA (21:24)
[2019-07-16] MEDS ORDERED: NICOTINE 21 MG/24 HR PATCH TRANSDERM PRN (22:15)
[2019-07-16] MEDS ORDERED: GLUCAGON 1 MG VIAL IM PRN (22:15)
[2019-07-16] MEDS ORDERED: ACETAMINOPHEN 325 MG TABLET PO PRN (22:15)
[2019-07-16] MEDS ORDERED: hydrALAZINE 20 MG/1 ML VIAL IV PRN (22:15)
[2019-07-16] MEDS ORDERED: DEXTROSE 10% 250 ML BAG IV PRN (22:27)
[2019-07-16] MEDS ORDERED: cefTRIAXone 1,000 MG in SYRINGE 1 EACH IV SCH (22:30)
[2019-07-16] MEDS: MORPHINE 4 MG/1 ML VIAL IV PRN (23:42)
[2019-07-17] MEDS: PIPERACILLIN/TAZOBACTAM 3,375 MG in SODIUM CHLORIDE 0.9% 100 ML IV SCH ×2 (09:12→16:42)
[2019-07-17] MEDS: MORPHINE 4 MG/1 ML VIAL IV PRN ×3 (09:13→21:58)
[2019-07-17] MEDS: SODIUM CHLORIDE 0.9% 1,000 ML IV SCH (15:02)
[2019-07-17] MEDS ORDERED: lisinopriL 5 MG TABLET PO SCH (21:00)
[2019-07-17] MEDS: ONDANSETRON 4 MG/2 ML VIAL IV PRN (21:58)
[2019-07-17] MEDS: ATORVASTATIN 40 MG TABLET PO SCH (21:58)
[2019-07-18] MEDS: PIPERACILLIN/TAZOBACTAM 3,375 MG in SODIUM CHLORIDE 0.9% 100 ML IV SCH ×3 (01:21→16:31)
[2019-07-18] MEDS: SODIUM CHLORIDE 0.9% 1,000 ML IV SCH ×2 (03:05→08:37)
[2019-07-18] MEDS: ONDANSETRON 4 MG/2 ML VIAL IV PRN ×2 (03:08→21:07)
[2019-07-18] MEDS: MORPHINE 4 MG/1 ML VIAL IV PRN ×4 (03:09→21:08)
[2019-07-18 06:21] LABS: Basophils # 0.1 10*3/uL (0.0-0.2); Basophils % 0.8 % (0.0-0.8); Eosinophils # 0.4 10*3/uL (0.0-0.87); Eosinophils % 3.9 % (0.00-10.9); Hematocrit 37.2 VOL% (42.0-52.0); Immature Granulocytes % 0.6 %; Immature Granulocytes Absolute 0.05 #; Lymphocytes # 1.8 10*3/uL (1.4-4.0); Lymphocytes % 20.2 % (21.2-54.2); Mean Corpuscular Volume 93.9 FL (87-102); Mean Platelet Volume 10.8 FL (9.6-12.0); Monocytes % 14.4 % (1.7-12.7); Neutrophils % 60.1 % (38.7-73.9); Red Blood Count 3.96 MC/CUMM (3.8-5.5); Red Cell Distribution Width 13.6 % (9.3-17.3)
[2019-07-18 06:40] LABS: Alanine Aminotransferase 12 U/L (16-61); Albumin 2.8 G/DL (3.4-5.0); Alkaline Phosphatase 62 U/L (45-117); Aspartate Amino Transferase 14 U/L (0-37); Bilirubin,Total < 0.39 MG/DL (0.2-1.0); Blood Urea Nitrogen 14 MG/DL (7-18); Calcium 8.5 MG/DL (8.5-10.1); Estimated Glom Filtration Rate 75 ML/MIN; Glucose 78 MG/DL (74-106); Osmolality,Calculated 280.3 MOS/KG (273-304); Total Protein 6.4 G/DL (6.4-8.3)
[2019-07-18 06:44] LABS: Hemoglobin 11.9 GM/DL (14.0-18.0); Platelet Count 292 T/CUMM (130-400); White Blood Count 9.1 T/CUMM (4-12)
[2019-07-18] MEDS: lisinopriL 5 MG TABLET PO SCH ×2 (08:27→21:06)
[2019-07-18] MEDS: METOPROLOL SUCCINATE XL 50 MG TABLET PO SCH (08:27)
[2019-07-18] MEDS ORDERED: cefOXitin 2,000 MG in SYRINGE 1 EACH IV ONE (16:52)
[2019-07-18] MEDS: ATORVASTATIN 40 MG TABLET PO SCH (21:06)
[2019-07-19] MEDS: PIPERACILLIN/TAZOBACTAM 3,375 MG in SODIUM CHLORIDE 0.9% 100 ML IV SCH ×3 (00:42→17:41)
[2019-07-19] MEDS: SODIUM CHLORIDE 0.9% 1,000 ML IV SCH ×3 (00:43→16:44)
[2019-07-19] MEDS: MORPHINE 4 MG/1 ML VIAL IV PRN ×4 (00:51→20:25)
[2019-07-19] MEDS: ONDANSETRON 4 MG/2 ML VIAL IV PRN ×2 (00:53→07:24)
[2019-07-19 08:11] LABS: Basophils # 0.1 10*3/uL (0.0-0.2); Eosinophils # 0.3 10*3/uL (0.0-0.87); Eosinophils % 3.2 % (0.00-10.9); Hematocrit 37.7 VOL% (42.0-52.0); Hemoglobin 11.9 GM/DL (14.0-18.0); Immature Granulocytes % 0.3 %; Immature Granulocytes Absolute 0.03 #; Lymphocytes # 1.6 10*3/uL (1.4-4.0); Lymphocytes % 17.9 % (21.2-54.2); Mean Corpuscular HGB Conc 31.6 GM/DL (32-36); Mean Platelet Volume 10.7 FL (9.6-12.0); Monocytes % 10.8 % (1.7-12.7); Neutrophils % 66.8 % (38.7-73.9); Platelet Count 303 T/CUMM (130-400); Red Blood Count 4.01 MC/CUMM (3.8-5.5); Red Cell Distribution Width 13.6 % (9.3-17.3); White Blood Count 8.7 T/CUMM (4-12)
[2019-07-19 08:53] LABS: Albumin 2.7 G/DL (3.4-5.0); Bilirubin,Total 0.4 MG/DL (0.2-1.0); Calcium 8.7 MG/DL (8.5-10.1); Total Protein 7.2 G/DL (6.4-8.3)
[2019-07-19] MEDS: METOPROLOL SUCCINATE XL 50 MG TABLET PO SCH (09:31)
[2019-07-19] MEDS: lisinopriL 5 MG TABLET PO SCH ×2 (09:31→20:24)
[2019-07-19] MEDS: ATORVASTATIN 40 MG TABLET PO SCH (20:24)
[2019-07-20] MEDS: MORPHINE 4 MG/1 ML VIAL IV PRN ×4 (00:47→22:03)
[2019-07-20] MEDS: SODIUM CHLORIDE 0.9% 1,000 ML IV SCH ×2 (01:17→17:09)
[2019-07-20] MEDS: PIPERACILLIN/TAZOBACTAM 3,375 MG in SODIUM CHLORIDE 0.9% 100 ML IV SCH ×3 (01:19→17:48)
[2019-07-20 09:49] LABS: Calcium 8.5 MG/DL (8.5-10.1); Osmolality,Calculated 284.8 MOS/KG (273-304)
[2019-07-20] MEDS: METOPROLOL SUCCINATE XL 50 MG TABLET PO SCH (10:16)
[2019-07-20] MEDS: lisinopriL 5 MG TABLET PO SCH ×2 (10:17→22:00)
[2019-07-20] MEDS ORDERED: MAGNESIUM SULF RIDER 4 GM in PREMIX 1 EACH IV PRN (10:37)
[2019-07-20 10:50] LABS: Basophils # 0.1 10*3/uL (0.0-0.2); Eosinophils # 0.2 10*3/uL (0.0-0.87); Eosinophils % 2.5 % (0.00-10.9); Hematocrit 38.1 VOL% (42.0-52.0); Hemoglobin 12.2 GM/DL (14.0-18.0); Immature Granulocytes % 0.5 %; Immature Granulocytes Absolute 0.04 #; Lymphocytes # 1.5 10*3/uL (1.4-4.0); Lymphocytes % 19.1 % (21.2-54.2); Mean Corpuscular Volume 94.3 FL (87-102); Mean Platelet Volume 11.6 FL (9.6-12.0); Monocytes % 9.5 % (1.7-12.7); Neutrophils % 67.4 % (38.7-73.9); Platelet Count 329 T/CUMM (130-400); Red Blood Count 4.04 MC/CUMM (3.8-5.5); Red Cell Distribution Width 13.5 % (9.3-17.3)
[2019-07-20] MEDS: POTASSIUM CHLORIDE 20 MEQ TABLET PO PRN ×4 (11:55→22:01)
[2019-07-20] MEDS ORDERED: SIMETHICONE CHEW 125 MG TABLET PO PRN (12:34)
[2019-07-20] MEDS: PANTOPRAZOLE 40 MG TABLET PO SCH (12:45)
[2019-07-20] MEDS: MAGNESIUM SULF RIDER 2 GM in PREMIX 1 EACH IV PRN (15:49)
[2019-07-20] MEDS: ATORVASTATIN 40 MG TABLET PO SCH (22:00)
[2019-07-21] MEDS: SODIUM CHLORIDE 0.9% 1,000 ML IV SCH ×2 (00:48→08:00)
[2019-07-21] MEDS: PIPERACILLIN/TAZOBACTAM 3,375 MG in SODIUM CHLORIDE 0.9% 100 ML IV SCH ×3 (00:49→17:22)
[2019-07-21] MEDS: MORPHINE 4 MG/1 ML VIAL IV PRN ×4 (02:14→21:24)
[2019-07-21 06:46] LABS: Basophils # 0.1 10*3/uL (0.0-0.2); Basophils % 0.8 % (0.0-0.8); Eosinophils # 0.3 10*3/uL (0.0-0.87); Eosinophils % 3.3 % (0.00-10.9); Hematocrit 34.8 VOL% (42.0-52.0); Hemoglobin 11.1 GM/DL (14.0-18.0); Immature Granulocytes % 0.4 %; Immature Granulocytes Absolute 0.03 #; Lymphocytes # 1.7 10*3/uL (1.4-4.0); Lymphocytes % 22.5 % (21.2-54.2); Mean Corpuscular HGB Conc 31.9 GM/DL (32-36); Mean Corpuscular Volume 94.1 FL (87-102); Mean Platelet Volume 11.8 FL (9.6-12.0); Monocytes % 11.1 % (1.7-12.7); Neutrophils % 61.9 % (38.7-73.9); Platelet Count 265 T/CUMM (130-400); Red Cell Distribution Width 13.5 % (9.3-17.3); White Blood Count 7.6 T/CUMM (4-12)
[2019-07-21 07:27] LABS: Calcium 8.2 MG/DL (8.5-10.1); Osmolality,Calculated 280.1 MOS/KG (273-304)
[2019-07-21] MEDS: METOPROLOL SUCCINATE XL 50 MG TABLET PO SCH (09:24)
[2019-07-21] MEDS: lisinopriL 5 MG TABLET PO SCH ×2 (09:24→20:46)
[2019-07-21] MEDS: PANTOPRAZOLE 40 MG TABLET PO SCH (09:24)
[2019-07-21] MEDS: ATORVASTATIN 40 MG TABLET PO SCH (20:46)
[2019-07-22] MEDS: PIPERACILLIN/TAZOBACTAM 3,375 MG in SODIUM CHLORIDE 0.9% 100 ML IV SCH ×2 (00:04→08:35)
[2019-07-22] MEDS: MORPHINE 4 MG/1 ML VIAL IV PRN ×2 (02:31→08:40)
[2019-07-22 06:49] LABS: Basophils # 0.1 10*3/uL (0.0-0.2); Basophils % 0.8 % (0.0-0.8); Eosinophils # 0.3 10*3/uL (0.0-0.87); Eosinophils % 3.7 % (0.00-10.9); Hematocrit 33.1 VOL% (42.0-52.0); Hemoglobin 10.6 GM/DL (14.0-18.0); Immature Granulocytes % 0.2 %; Immature Granulocytes Absolute 0.02 #; Lymphocytes # 1.7 10*3/uL (1.4-4.0); Lymphocytes % 19.2 % (21.2-54.2); Mean Platelet Volume 11.3 FL (9.6-12.0); Monocytes % 9.4 % (1.7-12.7); Neutrophils % 66.7 % (38.7-73.9); Platelet Count 276 T/CUMM (130-400); Red Blood Count 3.56 MC/CUMM (3.8-5.5); Red Cell Distribution Width 13.3 % (9.3-17.3); White Blood Count 8.7 T/CUMM (4-12)
[2019-07-22 07:15] LABS: Calcium 8.6 MG/DL (8.5-10.1); Osmolality,Calculated 274.4 MOS/KG (273-304)
[2019-07-22 08:23] VITALS: BP 168/64
[2019-07-22] MEDS: MAGNESIUM SULF RIDER 2 GM in PREMIX 1 EACH IV PRN (08:35)
[2019-07-22] MEDS: POTASSIUM CHLORIDE 20 MEQ TABLET PO PRN (08:39)
[2019-07-22] MEDS: lisinopriL 5 MG TABLET PO SCH (08:39)
[2019-07-22] MEDS: PANTOPRAZOLE 40 MG TABLET PO SCH (08:39)
[2019-07-22] MEDS: METOPROLOL SUCCINATE XL 50 MG TABLET PO SCH (08:39)
== END 2019-07-22 11:14 | disposition home or self-care (01) | DRG 388 ==
LOC: N.ED 18:29 → SUATTDRO 22:15 → N.EDINP 22:15 → N.3E 22:58
PROVIDERS: ADMIT Internal Medicine; ATTEND Internal Medicine